=== PATIENT | female | born 1970 | race Hispanic/Latino ===

== ENCOUNTER 2020-10-20 04:20 | Emergency (ER) | payer SELFPAY ==
[~2020-10-20] VITALS: Ht 160 cm; Wt 70.3 kg
[2020-10-20] MEDS ORDERED: NITROFURANTOIN100 MG PO (05:11)
[2020-10-20] MEDS ORDERED: PHENAZOPYRIDIN200 MG PO (05:14)
[2020-10-20 05:59] VITALS: BP 168/98
== END 2020-10-20 05:35 | disposition home or self-care (01) ==
LOC: FSED 04:45
DX: N39.0 Urinary tract infection, site not specified (principal); R30.0 Dysuria; E78.00 Pure hypercholesterolemia, unspecified
CPT/HCPCS: 81003; 99283